=== PATIENT | male | born 1940 | race Caucasian/White ===

== ENCOUNTER 2016-09-10 17:28 | Inpatient (IN) | payer OTHER, MEDICARE ==
[~2016-09-10] VITALS: Ht 170.2 cm; Wt 80.5 kg
[2016-09-10] VITALS (7 sets, daily range): BP systolic 69–145; BP diastolic 52–84; PULSE 65–96; RESP 16–24; TEMP 97.5; O2SAT 92–98
[~2016-09-10 17:28] MED LIST: LORT5TAB PO; LOTR5CAP2 PO; METO25 PO; SALM50I INH; ZAFI1TAB PO
[2016-09-10] MEDS ORDERED: SODIUM CHLOR 0.9% 1000 ML INJ 1,000 ML IV ONE ×5 (17:46→21:00)
[2016-09-10] MEDS ORDERED: SODIUM CHLOR 0.9% 1000 ML INJ 800 ML IV ONE (17:46)
[2016-09-10] MEDS ORDERED: ONDANSETRON HCL 4 MG/2 ML VIAL IV PUSH ONE (18:00)
[2016-09-10 18:16] LABS: AUTOMATED NEUTROPHIL # 18.8 TH/MM3 (1.8-7.7); EOSINOPHIL % 0.1 % (0.0-4.0); HEMATOCRIT 47.6 % (39.0-51.0); LYMPH % 5.6 % (9.0-44.0); LYMPHOCYTE # 1.2 TH/MM3 (1.0-4.8); MEAN CELL VOLUME 81.9 FL (80.0-100.0); MEAN CORPUSCULAR HEMOGLOBIN 28.2 PG (27.0-34.0); MEAN CORPUSCULAR HGB CONC 34.4 % (32.0-36.0); NEUT % 86.3 % (16.0-70.0); PLATELET COUNT 276 TH/MM3 (150-450); RED BLOOD COUNT 5.81 MIL/MM3 (4.50-5.90); RED CELL DISTRIBUTION WIDTH 14.3 % (11.6-17.2); WHITE BLOOD COUNT 21.7 TH/MM3 (4.0-11.0)
--- NOTE | 2016-09-10 18:21 | RADHPO ---
EXAM DATE/TIME: 09/10/2016 17:58 [facility] COMPARISON: No previous studies available for comparison. INDICATIONS : Shortness of breath and weakness. MEDICAL HISTORY : None. SURGICAL HISTORY : None. ENCOUNTER: Initial ACUITY: 4 - 6 days PAIN SCORE: 0/10 LOCATION: Bilateral chest FINDINGS: The lungs are clear without infiltrate, nodule, or mass. There is no appreciable pleural effusion fo r technique. Heart and mediastinum are unremarkable. CONCLUSION: No acute cardiopulmonary disease. Efren Londono MD on September 10, 2016 at 18:18 Board Certified Radiologist. This report was verified electronically.
[2016-09-10 18:24] LABS: CHLORIDE 96 MEQ/L (98-107); POTASSIUM 3.4 MEQ/L (3.5-5.1); SODIUM (NA) 130 MEQ/L (136-145)
[2016-09-10 18:28] LABS: ANION GAP 21 MEQ/L (5-15); BLOOD UREA NITROGEN 82 MG/DL (7-18)
[2016-09-10 18:30] LABS: APTT (PATIENT) 31.6 SEC (24.3-30.1); INTERNATIONAL NORMALIZED RATIO 1.1 RATIO; PROTHROMBIN TIME - PATIENT 11.9 SEC (9.8-11.6)
[2016-09-10 18:31] LABS: ALT (GPT) 50 U/L (12-78); AST (GOT) 63 U/L (15-37); GLOMERULAR FILTRATION RATE 5 ML/MIN (>89)
--- NOTE | 2016-09-10 18:32 | PD ---
HPI Chief Complaint: GI Complaint Time Seen by Provider: 17:41 Travel History International Travel<30 days: No Contact w/Intl Traveler<30days: No Traveled to known affect area: No History of Present Illness HPI 76-year-old male here for evaluation of diarrhea and generalized weakness. The patient has had multiple episodes of loose last watery bowel movements over the last 2 days. He is having some lower abdominal discomfort as well. Bowel movements have been clear and watery and the patient states that he has a bowel movement as soon as he tries to drink something. He has felt nauseous but has not vomited. Denies history of abdominal surgeries. States that occasionally he notices some bright red blood on the toilet paper, but believes that this is from irritation. No rectal pain. No recent travel outside the country. No recent antibiotic use. Chart review shows that the patient had a colonoscopy in 2007 which showed diverticulosis. [facility] Social History Alcohol Use: Yes (rare) Tobacco Use: No (former smoker) Allergies-Medications (Allergen,Severity, Reaction): Coded Allergies: No Known Allergies (Unverified , 09/10/16) Reported Meds & Prescriptions Reported Meds & Active Scripts Active Reported Metoprolol Tartrate 100 Mg Tab 100 Mg PO DAILY Hydrochlorothiazide 25 Mg Tab 25 Mg PO DAILY Hydrocodone-Acetaminophen 5-325 mg Tab 1 Tab PO Q12HR PRN Enalapril (Enalapril Maleate) 20 Mg Tab 20 Mg PO HS Zafirlukast 20 Mg Tab 20 Mg PO BIDAC Amlodipine (Amlodipine Besylate) 10 Mg Tab 10 Mg PO DAILY Review of Systems Except as stated in HPI: all other systems reviewed are Neg Physical Exam Narrative GENERAL: Well-developed, well-nourished, awake, alert, no acute distress. SKIN: Focused skin assessment warm/slightly diaphoretic. HEAD: Atraumatic. Normocephalic. EYES: Pupils equal and round. No scleral icterus. No injection or drainage. ENT: Mucous membranes pink and moist. NECK: Trachea midline. No JVD. No nuchal rigidity. CARDIOVASCULAR: Regular rate and rhythm. RESPIRATORY: No accessory muscle use. Clear to auscultation. Breath sounds equal bilaterally. GASTROINTESTINAL: Abdomen soft, nondistended. Mild diffuse tenderness without peritoneal signs. Normal bowel sounds. MUSCULOSKELETAL: No obvious deformities. No clubbing. No cyanosis. No edema. NEUROLOGICAL: Awake and alert. No obvious cranial nerve deficits. Motor grossly within normal limits. Normal speech. PSYCHIATRIC: Appropriate mood and affect; insight and judgment normal. Data Data Last Documented VS Vital Signs Date Time Temp Pulse Resp B/P Pulse Ox O2 Delivery O2 Flow Rate FiO2 09/10/16 19:38 20 09/10/16 19:38 89 145/56 98 Nasal Cannula 2 09/10/16 17:45 97.5 Orders Complete Blood Count With Diff (09/10/16 17:46) Comprehensive Metabolic Panel (09/10/16 17:46) Prothrombin Time / Inr (Pt) (09/10/16 17:46) Act Partial Throm Time (Ptt) (09/10/16 17:46) Lactic Acid Sepsis Protocol (09/10/16 17:46) Ckmb (Isoenzyme) Profile (09/10/16 17:46) Troponin I (09/10/16 17:46) Urinalysis - C+S If Indicated (09/10/16 17:46) Blood Culture (09/10/16 17:46) Chest, Single Ap (09/10/16 17:46) Blood Glucose (09/10/16 17:46) Ecg Monitoring (09/10/16 17:46) Iv Access Insert/Monitor (09/10/16 17:46) Oximetry (09/10/16 17:46) Oxygen Administration (09/10/16 17:46) Sodium Chlor 0.9% 1000 Ml Inj (Ns 1000 M (09/10/16 17:46) Sodium Chlor 0.9% 1000 Ml Inj (Ns 1000 M (09/10/16 17:46) Ondansetron Inj (Zofran Inj) (09/10/16 18:00) Ct Abd/Pel W/O Iv Contrast (09/10/16 18:34) Sodium Chlor 0.9% 1000 Ml Inj (Ns 1000 M (09/10/16 18:45) Sodium Chlor 0.9% 1000 Ml Inj (Ns 1000 M (09/10/16 18:45) C Diff Toxin Pcr (09/10/16 18:39) Stool Ova And Parasite Screen (09/10/16 18:39) Stool Wbc (Leukocytes) (09/10/16 18:39) CKMB (09/10/16 17:50) CKMB% (09/10/16 17:50) Metronidazole 500 Mg Inj (Flagyl 500 Mg (09/10/16 19:00) Sodium Chlor 0.45%... W/Sodium Bicarbona (09/10/16 19:45) Urinary Catheter Insert/Apply (09/10/16 19:47) Admit Order (Ed Use Only) (09/10/16 20:10) Labs Laboratory Tests Test 09/10/16 09/10/16 09/10/16 17:50 18:00 19:30 White Blood Count 21.7 TH/MM3 Red Blood Count 5.81 MIL/MM3 Hemoglobin 16.4 GM/DL Hematocrit 47.6 % Mean Corpuscular Volume 81.9 FL Mean Corpuscular Hemoglobin 28.2 PG Mean Corpuscular Hemoglobin 34.4 % Concent Red Cell Distribution Width 14.3 % Platelet Count 276 TH/MM3 Mean Platelet Volume 8.7 FL Neutrophils (%) (Auto) 86.3 % Lymphocytes (%) (Auto) 5.6 % Monocytes (%) (Auto) 8.0 % Eosinophils (%) (Auto) 0.1 % Basophils (%) (Auto) 0.0 % Neutrophils # (Auto) 18.8 TH/MM3 Lymphocytes # (Auto) 1.2 TH/MM3 Monocytes # (Auto) 1.7 TH/MM3 Eosinophils # (Auto) 0.0 TH/MM3 Basophils # (Auto) 0.0 TH/MM3 CBC Comment DIFF FINAL Differential Comment Prothrombin Time 11.9 SEC Prothromb Time International 1.1 RATIO Ratio Activated Partial 31.6 SEC Thromboplast Time Sodium Level 130 MEQ/L Potassium Level 3.4 MEQ/L Chloride Level 96 MEQ/L Carbon Dioxide Level 13.0 MEQ/L Anion Gap 21 MEQ/L Blood Urea Nitrogen 82 MG/DL Creatinine 9.80 MG/DL Estimat Glomerular Filtration 5 ML/MIN Rate Random Glucose 124 MG/DL Calcium Level 8.2 MG/DL Total Bilirubin 1.0 MG/DL Aspartate Amino Transf 63 U/L (AST/SGOT) Alanine Aminotransferase 50 U/L (ALT/SGPT) Alkaline Phosphatase 79 U/L Total Creatine Kinase 1132 U/L Creatine Kinase MB 31.0 NG/ML Creatine Kinase MB % 2.8 % Troponin I LESS THAN 0.02 NG/ML Total Protein 7.8 GM/DL Albumin 3.7 GM/DL Lactic Acid Level 2.2 mmol/L Stool C. difficile Toxin (PCR) NEGATIVE Stl C. difficile Toxin PRESUMPTIVE Epiderm 027 NEGATIVE MDM Medical Decision Making Medical Screen Exam Complete: Yes Emergency Medical Condition: Yes Interpretation(s) EKG: Sinus, rate 97, normal axis, normal intervals, T-wave inversions and ST depressions in 1, aVL, V4-V6 Differential Diagnosis Sepsis, dehydration, colitis, diverticulitis, metabolic abnormality Narrative Course Upon arrival to the emergency department the patient is notably hypotensive. One IV line was established by my nurse in the right arm and the patient was immediately given a normal saline IV bolus. Simultaneously I place an ultrasound-guided IV in the patient's left arm and started running another bolus through this IV. Initial vital signs show heart rate 96, blood pressure 69/52, pulse ox 92% on room air, oral temp of 97.5F. CBC shows WBC 21.7, hemoglobin 16.4, hematocrit 47.6, platelets 276, neutrophils 86.3%. CMP shows sodium 130, potassium 3.4, chloride 96, bicarbonate 13, anion gap 21, BUN 82, creatinine 9.8, GFR 50. Total CK is 1132. Troponin is less than 0.02. Lactic acid is 2.2. Chest x-ray: No acute cardio pulmonary disease. CT abdomen pelvis: Fatty liver and colonic diverticula. Patient's blood pressure responded after 2 L of normal saline IV. He was also written for another 2 L of normal saline. Brown catheter placed. Case discussed with on-call flight engineer performance qualified Dr. Armendariz who recommends starting the patient on half-normal saline with 2 amps of sodium bicarbonate at 125 cc per hour after he receives his normal saline boluses. Case discussed with actuary Dr. Ugalde. The patient will be admitted to the ICU here. The patient was made aware of all findings and plan for admission. All questions were answered. Critical Care Narrative Aggregate critical care time was 40 minutes. Time to perform other separately billable procedures was not included in the critical care time. My time did not include minutes spent treating any other patients simultaneously or on activities that did not directly contribute to the patient's treatment. The services I provided to this patient were to treat and/or prevent clinically significant deterioration that could result in: , permanent disability, septic shock, worsening clinical condition, multiorgan failure I provided critical care services requiring my management, as noted below: Chart data review, documentation time, medication orders and management, vital sign assessments/reviewing monitor data, ordering and reviewing lab tests, ordering and interpreting/reviewing x-rays and diagnostic studies, care of the patient and discussion of the patient with the admitting physicians. Procedures Procedure Narrative Ultrasound-guided peripheral IV: Using the linear ultrasound probe, a 20-gauge long IV catheter was placed in the patient's left arm. Site was prepped with ChloraPrep prior to insertion. Tolerated well. No complications. Diagnosis Primary Impression: Sepsis Qualified Code: A41.9 - Sepsis, due to unspecified organism Additional Impressions: Severe dehydration Acute renal insufficiency Abnormal EKG Diarrhea Qualified Code: R19.7 - Diarrhea, unspecified type Admitting Information Admitting Physician Requests: Admit Rj Miguel MD Sep 10, 2016 18:32
[2016-09-10 18:34] LABS: ALKALINE PHOSPHATASE 79 U/L (45-117)
[2016-09-10 18:45] LABS: CREATINE KINASE 1132 U/L (39-308)
[2016-09-10 18:51] LABS: HEMO FLAGS DIFF FINAL
[2016-09-10] MEDS ORDERED: metroNIDAZOLE 500 MG INJ 100 ML IV ONE (19:00)
[2016-09-10] MEDS ORDERED: AMLO10TA2 PO (19:07)
[2016-09-10] MEDS ORDERED: ZAFI1TAB4 PO (19:07)
[2016-09-10] MEDS ORDERED: ENAL20TA PO (19:07)
[2016-09-10] MEDS ORDERED: HYDR-3516 PO (19:07)
[2016-09-10] MEDS ORDERED: HYDR25TA5 PO (19:07)
[2016-09-10] MEDS ORDERED: METO100T PO (19:07)
--- NOTE | 2016-09-10 19:09 | RADHPO ---
EXAM DATE/TIME: 09/10/2016 18:40 [facility] COMPARISON: No previous studies available for comparison. INDICATIONS : Mid abdominal pain. Diarrhea. ORAL CONTRAST: No oral contrast ingested. RADIATION DOSE: 12.65 CTDIvol (mGy) MEDICAL HISTORY : Hypertension. SURGICAL HISTORY : None. ENCOUNTER: Initial ACUITY: 2 days PAIN SCALE: 4/10 LOCATION: Bilateral mid abdomen. TECHNIQUE: Volumetric scanning of the abdomen and pelvis was performed. Using automated exposure control and ad justment of the mA and/or kV according to patient size, radiation dose was kept as low as reasonably achievable to obtain optimal diagnostic quality images. FINDINGS: CT Abdomen: The spleen, pancreas, right kidney, adrenals are unremarkable. There is an approximate 1. 8 cm simple cyst in the left kidney. There is no evidence for any appreciable pathological adenopathy , free fluid, or bowel obstruction. Chronic vascular calcifications are present involving the aorta, iliac arteries without any significant stenosis or aneurysmal dilatations for technique. Neurovascul ar calcifications in both kidneys. There is no evidence for any stones in the kidneys or the course o f the ureters on either side. There is no hydronephrosis. The liver is fatty without focal lesions or technique. There may be a small sliding hiatal hernia. CT pelvis: There is no evidence for mass, abscess formation, or any significant adenopathy within the pelvis. The prostate gland is inhomogeneous and measures 4.7 x 5.3 cm in AP and transverse diameters and nonspecific. There is slight hydrocele within the right scrotal sac. There are scattered diverti culi mainly in the sigmoid colon without definite signs of diverticulitis. CONCLUSION: Fatty liver and colonic diverticuli. Efren Londono MD on September 10, 2016 at 19:03 Board Certified Radiologist. This report was verified electronically.
[2016-09-10] MEDS ORDERED: SODIUM BICARBONATE 8.4% INJ 100 MEQ in SODIUM CHLOR 0.45% 1000 ML INJ 1,000 ML IV SCH (19:45)
[2016-09-10 20:12] LABS: LACTIC ACID GHOST NOT REPORTABLE
[2016-09-10] MEDS ORDERED: CHLORHEXIDINE GLUCONATE 2 % 1 PACK (2 CLOTHS) TOP PRN (20:45)
[2016-09-10] MEDS ORDERED: ZOLPIDEM TARTRATE 5 MG TAB PO PRN (20:45)
[2016-09-10] MEDS ORDERED: ACETAMINOPHEN 325 MG TAB PO PRN (20:45)
[2016-09-10] MEDS ORDERED: SODIUM CHLOR 0.9% 1000 ML INJ 1,000 ML IV SCH (20:45)
[2016-09-10] MEDS ORDERED: SODIUM CHLORIDE 0.9% FLUSH 10 ML FLUSH PRN (20:45)
[2016-09-10] MEDS ORDERED: LORazepam 2 MG/ML VIAL IV PRN (20:45)
[2016-09-10] MEDS ORDERED: MISCELLANEOUS NURSING INFORMATION XX SCH (20:45)
[2016-09-10] MEDS ORDERED: RESP: ALBUTEROL 2.5 MG/IPRATROPIUM 0.5 MG NEB (PRN) INH (20:45)
[2016-09-10 20:52] LABS: BLOOD, URINE LARGE (NEG); GLUCOSE,URINE NEG (NEG); KETONE, URINE NEG (NEG); NITRITE,URINE NEG (NEG)
[2016-09-10] MEDS: SODIUM CHLORIDE 0.9% FLUSH 10 ML FLUSH SCH (21:00)
[2016-09-10 21:02] LABS: SQUAMOUS EPITHELIAL CELL URINE 0-5 /hpf (0-5); URINE COLOR YELLOW (YELLW/STRAW); WBC, URINE 0-2 /hpf (0-5)
[2016-09-10 21:03] LABS: COMMENT (UR) CULT NOT INDICATED; CULTURE IF INDICATED CULT NOT INDICATED
[2016-09-10 22:56] LABS: C. DIFF EPI 027 PRESUMPTIVE NEGATIVE (NEGATIVE); C. DIFF TOXIN PCR NEGATIVE (NEGATIVE)
[2016-09-10] MEDS: cefTRIAXone INJ 1,000 MG in SODIUM CHLORIDE 0.9% INJ 100 ML IV SCH (23:17)
[2016-09-10] MEDS: HEPARIN SODIUM - SQ 10,000 UNITS/ML VIAL SQ SCH (23:18)
[2016-09-10] MEDS: FAMOTIDINE 20 MG/2 ML VIAL IV PUSH SCH (23:18)
[2016-09-11] VITALS (29 sets, daily range): BP systolic 91–153; BP diastolic 52–74; PULSE 96–130; RESP 16–22; TEMP 98.2–98.7; O2SAT 93–99
[2016-09-11] MEDS: CHLORHEXIDINE GLUCONATE 2 % 1 PACK (2 CLOTHS) TOP SCH (04:00)
[2016-09-11] MEDS: metroNIDAZOLE 500 MG INJ 100 ML IV SCH ×3 (04:39→19:52)
[2016-09-11 06:04] LABS: AUTOMATED NEUTROPHIL # 8.1 TH/MM3 (1.8-7.7); BASOPHIL % 0.1 % (0.0-2.0); EOSINOPHIL % 0.2 % (0.0-4.0); HEMATOCRIT 36.8 % (39.0-51.0); LYMPH % 5.9 % (9.0-44.0); LYMPHOCYTE # 0.5 TH/MM3 (1.0-4.8); MEAN CELL VOLUME 81.8 FL (80.0-100.0); MEAN CORPUSCULAR HEMOGLOBIN 27.9 PG (27.0-34.0); NEUT % 85.8 % (16.0-70.0); PLATELET COUNT 153 TH/MM3 (150-450); RED CELL DISTRIBUTION WIDTH 13.9 % (11.6-17.2); WHITE BLOOD COUNT 9.3 TH/MM3 (4.0-11.0)
[2016-09-11 06:09] LABS: HEMO FLAGS DIFF FINAL
[2016-09-11 06:22] LABS: CALCIUM-PROTEIN CORRECTED 7.7 MG/DL (8.5-10.1); MAGNESIUM 1.8 MG/DL (1.5-2.5); POTASSIUM 3.2 MEQ/L (3.5-5.1); TOTAL BILIRUBIN ADULT 0.9 MG/DL (0.2-1.0)
[2016-09-11] MEDS ORDERED: GLUCAGON 1 MG/ML VIAL OTHER PRN (07:00)
[2016-09-11] MEDS ORDERED: DEXTROSE 50% IN WATER 50 ML VIAL(D50) IV PUSH PRN (07:00)
[2016-09-11] MEDS ORDERED: SODIUM CHLOR 0.9% 1000 ML INJ 1,000 ML IV ONE ×2 (07:15→15:15)
[2016-09-11] MEDS ORDERED: POTASSIUM CHLOR 20 MEQ PREMIX 100 ML IV ONE ×2 (08:00→15:30)
[2016-09-11] MEDS: INSULIN NovoLIN REGULAR SUPPLEMENTAL SCALE SQ SCH ×3 (08:00→20:00)
[2016-09-11] MEDS: SODIUM BICARBONATE 8.4% INJ 100 MEQ in SODIUM CHLOR 0.45% 1000 ML INJ 1,000 ML IV SCH ×3 (08:06→22:42)
[2016-09-11] MEDS: HEPARIN SODIUM - SQ 10,000 UNITS/ML VIAL SQ SCH ×2 (08:08→19:53)
[2016-09-11] MEDS: FAMOTIDINE 20 MG/2 ML VIAL IV PUSH SCH ×2 (08:09→19:52)
--- NOTE | 2016-09-11 08:18 | MH ---
cc: KAYLYNN VALIENTE M.D. DATE OF ADMISSION 09/10/2016 DATE OF 1940 HISTORY The patient is a 76-year-old male with a past medical history of hypertension who presented to [facility] ED with a history of diarrhea, generalized weakness and decreased p.o. intake for the last two days. He denies any associated symptoms of emesis, abdominal pain, fever, chills or any constitutional symptoms. In addition, he denies any chest pain, shortness of breath, orthopnea, PND or edema of the lower extremities.. Upon arrival to the ER, he was initially hypotensive with a blood pressure 69/52, however, the patient responded to fluid resuscitation. He was given two liters of crystalloids in the ED and his current blood pressure is 130/62 with a pulse of 102. CT scan of the abdomen and pelvis obtained on arrival which showed fatty liver and colonic diverticuli. In addition, his chest x-ray in the ER showed no acute cardiopulmonary disease. LABORATORY DATA His laboratory data on arrival showed leukocytosis with a WBC of 21.7 which resolved and his current WBC is 9.3. Other significant labs showed acute renal failure with a BUN of 82, creatinine 9.80 and lactic acid of 2.2. His renal function continued to improve with hydration. His BUN is 69 with a creatinine of 5.10 and lactic acid of 1.0 this morning. C. diff PCR is negative. The patient was placed on empiric antibiotics in the form of Flagyl and Rocephin. He appears comfortable on room air oxygen with a saturation of 94%. The patient states that he feels better overall. He denies any recent travel or antibiotics use. PAST MEDICAL HISTORY Significant for hypertension. PAST SURGICAL HISTORY Surgery on his right arm. ALLERGIES NO KNOWN DRUG ALLERGIES. REPORTED MEDICATIONS 1. Metoprolol 2. Hydrochlorothiazide 3. Enalapril 4. Amlodipine SOCIAL HISTORY Nonsmoker, social drinker. FAMILY HISTORY Noncontributory REVIEW OF SYSTEMS As per HPI. The rest of the systems is unremarkable. PHYSICAL EXAM This is a 76-year-old male lying in bed in no acute distress. VITAL SIGNS: Afebrile, temperature 98.2, pulse of 102, blood pressure 130/62, saturation 94% on room air. HEENT: Atraumatic, normocephalic pupil equal and reactive to accommodation, extraocular muscles intact. Conjunctiva pink. Nonicteric sclerae. Oral mucosa within normal. NECK: Supple. No JVD, adenopathy or thyromegaly. Trachea midline. CARDIOVASCULAR: Tachycardiac, normal S1-S2. No murmurs, rubs or gallops noted. PULMONARY: Bilateral equal entry. No crackles or wheezing. ABDOMEN: Soft, obese, nontender, no distension. Positive bowel sounds. EXTREMITIES: No cyanosis or edema. NEUROLOGIC: No focal sensory deficit. Awake and alert. LABORATORY DATA From this morning sodium 142, potassium 3.2, chloride 113, CO2 14, BUN 69, creatinine 5.10, glucose 82, lactic acid one, corrected calcium 7.7, AST 41, ALT 37, total bilirubin 0.9, ammonia level 10, troponin less than 0.02 x2 sets. WBC 9.3, hemoglobin 12.5, hematocrit 36, platelet count 153, INR 1.1, PT 11.9, PTT 31.6. Urinalysis showed negative leukocyte esterase, negative nitrite, 0-2 WBCs, C. diff toxin PCR negative. RADIOGRAPHY STUDIES Chest x-ray showed no acute cardiopulmonary disease. CT abdomen, pelvis showed fatty liver and colonic diverticulitis. IMPRESSION 1. Hypotension resolved 2. Severe dehydration 3. Diarrhea 4. Leukocytosis resolved 5. Lactic acidemia resolved 6. Acute renal failure likely a prerenal picture improving 7. History of hypertension. RECOMMENDATIONS 1. The patient is awake, alert, avoid any sedatives. 2. Oxygen p.r.n. to maintain sats above 92% and bronchodilators on a p.r.n. basis. 3. Monitor heart rate and blood pressure and maintain MAP greater than 65 mmHg. 4. His troponin I negative at times is less than 0.02 x2 sets and lactic acid resolved. 5. Continue with IV hydration. 6. Monitor renal function I's and O's and avoid nephrotoxins. 7. He was given two liters of crystalloids in the ED. We will place on half NS plus 2 ampules of sodium bicarb at 125 mL/hr and will consult nephrology service. 8. Dr. Armendariz was contacted by ED on arrival. His CT abdomen and pelvis showed fatty liver and colonic diverticula. No evidence of any hydronephrosis. A 1.8 cm simple cyst noted in the left kidney. 9. Continue empiric antibiotics in the form of Rocephin and Flagyl and monitor for signs of infections which include fever and WBC. Follow up on blood cultures and stool culture. In addition, his C. Diff PCR is negative. 10. The patient is on a p.o. diet and Pepcid 10 mg a [id number] for GI prophylaxis. 11. Place on sliding scale insulin with Accu-Chek q6-hour if needed for glycemic control. 12. Monitor CBC 13. GI prophylaxis with Pepcid and DVT prophylaxis with SCDs and heparin subcu. 1800 Addendum: Patient's renal function improving with hydration. Will sign off and transfer care to [facility]. MD FARHAD Ba/ABDULAZIZ /6:55 AM /7:48 AM RAJENDRA
[2016-09-11] MEDS: SODIUM CHLORIDE 0.9% FLUSH 10 ML FLUSH SCH ×2 (08:21→21:57)
[2016-09-11] MEDS ORDERED: CALCIUM GLUCONATE INJ 1 GM in SODIUM CHLORIDE 0.9% INJ 100 ML IV ONE (09:00)
[2016-09-11 12:13] LABS: MRSA PCR NEGATIVE (NEGATIVE); STAPH AUREUS PCR NEGATIVE (NEGATIVE)
[2016-09-11 13:00] LABS: POTASSIUM 3.3 MEQ/L (3.5-5.1)
[2016-09-11 13:17] LABS: BICARBONATE 15.2 MEQ/L (21.0-32.0)
[2016-09-11 13:28] LABS: CALCIUM-PROTEIN CORRECTED 8.3 MG/DL (8.5-10.1)
--- NOTE | 2016-09-11 18:36 | MB ---
cc: TESSA SHERIDAN MD DATE OF CONSULTATION 09/11/16 REASON FOR CONSULTATION Elevated BUN and creatinine for evaluation. HISTORY OF PRESENT ILLNESS This is a 76-year-old male with past medical history of hypertension only presented to the emergency department yesterday evening because of severe diarrhea and generalized weakness lasting for the last 2-3 days. I was called to see the patient because of a very high BUN and creatinine. His BUN on presentation was 82 and the creatinine was 9.8. His potassium was low 3.4 but the bicarb was 13. The patient was complaining of diarrhea for the last [id number] days and he has no abdominal pain. There was no vomiting. The bowel movement was three to four per day and, when he came in here, he was found to be hypotensive. His blood pressure was 69/52. After fluid resuscitation, the blood pressure improved and he started passing more urine. His BUN and creatinine are also coming down. The patient denies any previous known history of renal disease. We do not have any baseline creatinine for him. PAST MEDICAL HISTORY Hypertension. PAST SURGICAL HISTORY Right arm surgery. REVIEW OF SYSTEMS There is no history of fever. No sore throat. He has generalized weakness, feeling tired. There is no shortness of breath. No chest pain or palpitations. He denies any abdominal pain. There is no history of vomiting. He has loose bowel motion going on for the last 2-3 days before coming to the hospital. He was feeling weak and tired. SOCIAL HISTORY . There is no history of smoking or alcoholism FAMILY HISTORY Noncontributory. ALLERGIES NO KNOWN DRUG ALLERGIES. MEDICATIONS Current at home 1. Metoprolol. 2. Hydrochlorothiazide. 3. Enalapril. 4. Amlodipine. Here he is getting 1. IV fluid with Sodium bicarbonate 2. Potassium chloride 3. Calcium gluconate. 4. Famotidine 10 mg q. 12-hour. 5. Heparin subcu 5000 units q 12 hr. 6. Ceftriaxone 1 gram q 24 hours. 7. Metronidazole 500 mg q.8 h 8. Ativan 9. Ambien as needed PHYSICAL EXAMINATION GENERAL: Patient is awake, alert. He is not in acute distress. VITAL SIGNS: Blood pressure is 121/55, temperature is 98.7, oxygen saturation 97-98%. HEENT: Pupils equally reacting to light. Nonicteric sclerae, conjunctivae normal. NECK: Supple. JVD is not elevated. LUNGS: The patient has bilateral good air entry with occasional wheezing. HEART: S1, S2 regular rhythm. ABDOMEN: Distended, soft, lax. There is no tenderness. Bowel sounds positive. EXTREMITIES: She has no pedal edema. LABORATORY DATA WBC count 9.3, hemoglobin 12.5, platelet count 153, neutrophils 85.8%. Sodium 130. Potassium 3.4, chloride 96, bicarb 13, BUN 82, creatinine 9.8. This was on presentation. The latest BMP showing the sodium is 144. Potassium 3.3, chloride 116, bicarb 15.2, BUN 56, creatinine 3.3, calcium corrected is 8.3. Troponin I is less than 0.02, total protein is 5.3. Albumin of 2.6. Lactic acid was 1.0. It was 2.2 on presentation. AST is 41, ALT 37, alkaline phosphatase 58, total creatinine kinase was 1132, INR is 1.1. Urinalysis showing protein of 100. C difficile toxin was negative. Stool cultures and blood cultures are showing no growth so far. IMAGING STUDIES The patient has abdomen and pelvis CT scan done without IV contrast and it shows that he has fatty liver and colonic diverticula, a 1.8 cm simple cyst in the left kidney, no evidence of adenopathy. No hydronephrosis. Right kidney was reported as unremarkable. Chest x-ray Was done which shows that he has no acute cardiopulmonary disease. ASSESSMENT/PLAN 1. Acute kidney injury 2. Hypokalemia. 3. Metabolic acidosis 4. Elevated CPK 5. Severe diarrhea. 6. Hypotension and dehydration. 7. History of hypertension The patient has low blood pressure and very high BUN and creatinine. Most likely the acute kidney injury is related to either dehydration or possibility of ATN. Underlying chronic kidney disease cannot be ruled out completely. He has simple cyst in the left kidney, otherwise, there is no hydronephrosis. He has mild proteinuria. Since he has history of hypertension, there is a possibility of some hypertensive renal disease. At present, I agree with continuing the IV fluid. The bicarb is still not normalized. The CPK level was high. This could be contributing also by causing some form of rhabdo. At present, avoid any nephrotoxins and continue the hydration and antibiotic and follow the urine output and BUN, creatinine. Replace the potassium as needed. Thank you for the consultation. MD CHANDRA Tubbs/ /4:38 PM /6:18 PM
--- NOTE | 2016-09-11 19:36 | EKG ---
Date Performed: 09/11/2016 Time Performed: 12:38:34 PTAGE: 76 years EKG: Atrial fibrillation with rapid ventricular response. Extensive ST-T changes may be due to m yocardial ischemia Compared to prior tracing no significant change Abnormal ECG PREVIOUS TRACING : 09/11/2016 01.58 DOCTOR: Justin Tabares Interpretating Date/Time 09/11/2016 19:33:37
--- NOTE | 2016-09-11 19:55 | EKG ---
Date Performed: 09/11/2016 Time Performed: 01:58:52 PTAGE: 76 years EKG: Atrial fibrillation with rapid ventricular response. Extensive ST-T changes may be due to m yocardial ischemia Compared to previous tracing, ST-T abnormalities are new Abnormal ECG PREVIOUS TRACING : 09/10/2016 17.38 DOCTOR: Justin Tabares Interpretating Date/Time 09/11/2016 19:54:21
--- NOTE | 2016-09-11 19:56 | EKG ---
Date Performed: 09/10/2016 Time Performed: 17:38:14 PTAGE: 76 years EKG: Sinus rhythm with PAC(s) Extensive ST-T changes may be due to myocardial ischemia Compared to prior tracing no si gnificant change Abnormal ECG PREVIOUS TRACING : 03/23/2008 08.03 DOCTOR: Justin Tabares Interpretating Date/Time 09/11/2016 19:54:35
[2016-09-11] MEDS: cefTRIAXone INJ 1,000 MG in SODIUM CHLORIDE 0.9% INJ 100 ML IV SCH (21:54)
[2016-09-11] MEDS: MORPHINE SULFATE 4 MG/ML INJ IV PRN (21:55)
[2016-09-12] VITALS (24 sets, daily range): BP systolic 117–166; BP diastolic 58–87; PULSE 88–133; RESP 10–28; TEMP 98.1–98.6; O2SAT 92–97
[2016-09-12] MEDS: POTASSIUM CHLORIDE 20 MEQ CONTROLLED RELEASE TAB PO SCH ×3 (00:47→08:58)
[2016-09-12] MEDS: INSULIN NovoLIN REGULAR SUPPLEMENTAL SCALE SQ SCH ×2 (02:00→08:00)
[2016-09-12] MEDS: CHLORHEXIDINE GLUCONATE 2 % 1 PACK (2 CLOTHS) TOP SCH ×2 (04:00→23:00)
[2016-09-12] MEDS: metroNIDAZOLE 500 MG INJ 100 ML IV SCH ×3 (04:23→19:43)
[2016-09-12] MEDS: FAMOTIDINE 20 MG/2 ML VIAL IV PUSH SCH ×2 (08:58→21:18)
[2016-09-12] MEDS: SODIUM BICARBONATE 8.4% INJ 100 MEQ in SODIUM CHLOR 0.45% 1000 ML INJ 1,000 ML IV SCH (08:58)
[2016-09-12] MEDS: METOPROLOL TARTRATE 25 MG TAB PO SCH ×2 (08:58→21:18)
[2016-09-12] MEDS: HEPARIN SODIUM - SQ 10,000 UNITS/ML VIAL SQ SCH (08:58)
[2016-09-12] MEDS: SODIUM CHLORIDE 0.9% FLUSH 10 ML FLUSH SCH ×2 (08:59→20:00)
--- NOTE | 2016-09-12 10:00 | MB ---
cc: JUSTIN MCNEIL DO DATE OF CONSULTATION: 09/12/2016 REASON FOR CONSULTATION Atrial fibrillation with rapid ventricular response. HISTORY OF PRESENT ILLNESS Alfa Law is a pleasant 76-year-old male with a past medical history of hypertension who presented to [facility] due to extensive diarrhea and generalized weakness. He states that he has been having diarrhea and generalized weakness for [id number] days. Denies abdominal pain, nausea or vomiting. He was having bowel movements [id number] times per day. On arrival to the emergency room, he was found to have a blood pressure of 70/50 which improved after fluid resuscitation. He was also noted to be in atrial fibrillation with rapid ventricular response. He has not received any medications to decrease his heart rate. In seeing him this morning his heart rate is still mildly elevated in the 100-110 range. PAST MEDICAL HISTORY Hypertension. PAST SURGICAL HISTORY Right arm surgery. ALLERGIES NO KNOWN DRUG ALLERGIES. MEDICATIONS 1. Enalapril 20 mg every night. 2. Metoprolol tartrate 100 mg daily. 3. Norvasc 10 mg daily. 4. Zafirlukast 20 mg b.i.d. 5. Hydrocodone/acetaminophen 5/325 one tablet every 12 hours as needed. 6. Hydrochlorothiazide 25 mg daily. SOCIAL HISTORY The patient lives part of the year in [place] and part of the year in [place] with his granddaughter. He is . Denies a history of tobacco or alcohol abuse. FAMILY HISTORY Denies premature coronary artery disease or sudden cardiac within the family. REVIEW OF SYSTEMS Fourteen systems were reviewed including osteopathic, pertinent positives and negatives above otherwise negative. PHYSICAL EXAMINATION VITAL SIGNS: Temperature 98.3, heart rate 116, blood pressure 145/65, respirations 18, pulse ox 94% on room air. GENERAL: In general the patient appears well, in no acute distress. Alert, awake and oriented x3. HEENT: Extraocular muscles intact. Mucous membranes moist. NECK: Neck is supple. No JVD at 45 degrees. No carotid bruits heard bilaterally. Carotid upstroke is brisk in nature. HEART: Heart is irregularly irregular. Positive first and second heart sounds with no noted murmurs, gallops or rubs. PMI is nondisplaced. LUNGS: Lungs are clear to auscultation bilaterally. No wheezes, rales or rhonchi. ABDOMEN: Abdomen is soft, nontender, nondistended. No organomegaly noted. EXTREMITIES: Show no clubbing, cyanosis or edema. Femoral and distal pulses intact bilaterally. NEUROLOGIC: No focal deficits. SKIN: Warm, dry and intact. OSTEOPATHIC: Osteopathically no kyphoscoliosis, lordosis or paraspinal tender points. LABORATORY WORK White blood cells 9.3, hemoglobin 12.5, hematocrit 36.8, platelets 153. Potassium 3.0, BUN 56, creatinine 9.8 decreasing to 3.3, troponin negative x3. Electrocardiogram (September 11, 2016 at 1917): Atrial fibrillation with rapid ventricular response, possible LVH with secondary ST-T wave changes versus possible ischemia. IMPRESSIONS 1. Severe hypotension on arrival secondary to dehydration which resolved after fluid resuscitation. 2. Severe dehydration due to diarrhea. 3. Diarrhea of unknown cause. 4. Atrial fibrillation with rapid ventricular response which is new in onset. 5. Lactic acidemia. 6. Acute renal failure. 7. Hypokalemia most likely due to diarrhea. 8. History of hypertension. RECOMMENDATIONS 1. Mr. Law appears to have had extensive diarrhea leading to hypotension and generalized weakness as well as hypokalemia. He has since been fluid resuscitated and hemodynamically stable. 2. As far as his atrial fibrillation, his heart rate is still somewhat elevated. I will plan on starting him back on some of his metoprolol tartrate most likely 25 mg b.i.d. which can be titrated up as necessary. 3. We will check a 2D echo to look at his overall left ventricular function, cardiac structure and possible vulvopathies. 4. I discussed with him about anticoagulation for his atrial fibrillation. He is a CHADS-VASc 2 of 2 on the borderline of 3 (age, hypertension). Because of this, we will plan on placing him on Eliquis 5 mg b.i.d. 5. I did speak to him about his bleeding risk and he states that he has been taking excessive amounts of ibuprofen due to his elbow and neck pain. We discussed that he needs to cut down on the amount of ibuprofen he uses specifically in regards to his hypertension and current kidney function which he is agreeable to. 6. He does have some ST-T wave changes on his EKG which may be due to LVH versus ischemia. He will need a further ischemic evaluation with stress testing whether inpatient or outpatient. Further recommendations will be made based on the hospital course. Thank you for allowing me to see Alfa Law. If there are any questions, please do not hesitate to call. Justin Mcneil DO VGP/BJF /7:55 AM /9:26 AM
[2016-09-12 10:19] LABS: AUTOMATED NEUTROPHIL # 4.3 TH/MM3 (1.8-7.7); BASOPHIL % 0.4 % (0.0-2.0); EOSINOPHIL % 0.7 % (0.0-4.0); HEMATOCRIT 34.9 % (39.0-51.0); LYMPH % 12.6 % (9.0-44.0); LYMPHOCYTE # 0.7 TH/MM3 (1.0-4.8); MEAN CELL VOLUME 82.6 FL (80.0-100.0); MEAN CORPUSCULAR HEMOGLOBIN 27.3 PG (27.0-34.0); MONO % 8.2 % (0.0-8.0); NEUT % 78.1 % (16.0-70.0); PLATELET COUNT 142 TH/MM3 (150-450); RED BLOOD COUNT 4.22 MIL/MM3 (4.50-5.90); RED CELL DISTRIBUTION WIDTH 13.3 % (11.6-17.2); WHITE BLOOD COUNT 5.4 TH/MM3 (4.0-11.0)
[2016-09-12 10:28] LABS: CHLORIDE 113 MEQ/L (98-107); POTASSIUM 3.3 MEQ/L (3.5-5.1); SODIUM (NA) 146 MEQ/L (136-145)
[2016-09-12 10:32] LABS: ANION GAP 10 MEQ/L (5-15); BICARBONATE 23.4 MEQ/L (21.0-32.0)
[2016-09-12 10:34] LABS: HEMO FLAGS DIFF FINAL
--- NOTE | 2016-09-12 11:30 | HHI.PR ---
Subjective Remarks Follow-up for diarrhea and severe JOSE MARIA. Patient was transferred to hospitalist service from critical care. Patient states he feels "110% better". Still has diarrhea. He denies any chest pain, shortness of breath, nausea, or vomiting. Objective Vitals Vital Signs Date Time Temp Pulse Resp B/P Pulse Ox O2 Delivery O2 Flow Rate FiO2 09/12/16 11:00 106 19 117/62 92 09/12/16 10:00 104 16 138/70 92 09/12/16 10:00 104 09/12/16 09:00 118 22 161/73 95 09/12/16 08:00 111 09/12/16 08:00 92 Room Air 09/12/16 08:00 98.6 122 28 126/69 94 09/12/16 07:00 112 17 119/64 95 09/12/16 06:00 116 18 145/65 95 09/12/16 05:00 118 17 153/63 95 09/12/16 04:00 98.3 114 17 150/75 97 09/12/16 03:00 114 17 129/59 97 09/12/16 02:00 120 25 122/66 95 09/12/16 01:00 108 18 140/58 94 09/12/16 00:00 98.5 120 23 129/77 94 09/11/16 23:00 114 19 153/63 94 09/11/16 22:00 09/11/16 22:00 118 21 140/65 93 09/11/16 21:00 112 20 138/74 95 09/11/16 20:50 94 21 09/11/16 20:00 98.4 116 21 115/60 94 09/11/16 20:00 130 09/11/16 19:00 110 18 143/52 95 09/11/16 18:00 110 09/11/16 16:00 108 09/11/16 15:00 98.7 118 18 121/55 98 09/11/16 14:00 113 09/11/16 12:00 113 I/O 09/11/16 09/11/16 09/11/16 09/12/16 09/12/16 09/12/16 07:00 15:00 23:00 07:00 15:00 23:00 Intake Total 4770 ml 2000 ml 3188 ml 1189 ml Output Total 2400 ml 2200 ml 1200 ml 1100 ml Balance 2370 ml -200 ml 1988 ml 89 ml Intake Oral 300 ml 300 ml IV Total 4770 ml 2000 ml 2888 ml 889 ml Output Urine Total 2400 ml 2200 ml 1200 ml 1100 ml Result Diagram: 09/12/16 1011 09/12/16 1011 Imaging Last Impressions Abdomen/Pelvis CT 09/10/16 1834 Signed Impressions: Service Date/Time: August 18:40 - CONCLUSION: Fatty liver and colonic diverticuli. Efren Londono MD Chest X-Ray 09/10/16 1746 Signed Impressions: Service Date/Time: August 17:58 - CONCLUSION: No acute cardiopulmonary disease. Efren Londono MD Objective Remarks GENERAL: Well-nourished, well-developed patient in no apparent distress. SKIN: Warm and dry. HEAD: Atraumatic. Normocephalic. CARDIOVASCULAR: Heart rate 133, irregularly irregular. RESPIRATORY: No accessory muscle use. Clear to auscultation. Breath sounds equal bilaterally. GASTROINTESTINAL: Normoactive bowel sounds. Abdomen soft, non-tender, nondistended. MUSCULOSKELETAL: No lower extremity edema bilaterally. NEUROLOGICAL: Awake and alert. Motor grossly within normal limits. Normal speech. PSYCHIATRIC: Appropriate mood and affect; insight and judgment normal. Urinary Catheter: Yes Assessment to: Continue Brown insert reason: Measure Accurate Output Date of Insertion: Sep 10, 2016 Vascular Central Line Catheter: No A/P Problem List: (1) Severe sepsis ICD Code: A41.9 Status: Acute (2) Diarrhea ICD Code: R19.7 Status: Acute (3) Acute renal insufficiency ICD Code: N28.9 Status: Acute (4) Rhabdomyolysis ICD Code: M62.82 Status: Acute (5) Electrolyte abnormality ICD Code: E87.8 Status: Acute (6) Atrial fibrillation with RVR ICD Code: I48.91 Status: Acute Assessment and Plan 76-year-old male with: Severe sepsis: Improved. Initial WBC count 21.7-->5.0. Respiratory rate greater than 20. Heart rate greater than 90 but patient also in A. fib. Lactic acid 2.2. Source of infection suspected gastroenteritis. Hypotensive with BP of 69/52 on presentation. -Blood cultures 2 no growth to date -Continue IVF -Continue antibiotics as below -Telemetry, vitals Diarrhea: The patient likely has a gastroenteritis. Could be bacterial as patient had neutrophil count of 86.3% initially. -Continue Flagyl and ceftriaxone -Continue IV hydration -Monitor stool output -Final stool studies pending. Few WBCs. Acute renal failure: Improved. Severe. BUN/creatinine 82/9.8 on arrival. Ratio indicates intrarenal although patient very likely dehydrated as well. -Nephrology consultation appreciated. States JOSE MARIA due to dehydration or possibly ATN. Per neph, there is possibly of some hypertensive renal disease as well. Collateral Clerk documents the patient has been taking excessive amounts of ibuprofen for pain as well which could have contributed to renal failure. -Continue IV fluids -Monitor BMP -Avoid nephrotoxins Rhabdomyolysis: CK elevated at 1132, could be due to infection or electrolyte abnormalities. -Continue IV hydration -Repeat am CPK Electrolyte abnormalities: Including hypokalemia which persists. Patient initially hyponatremic and hypochloremic but now mildly hypernatremic and hyperchloremic. -Discontinue sodium bicarbonate fluids as bicarb is wnl. Switch to 1/2 NS + 20 mEq KCl at 100 mL/hr IV. -20 mEq po KCl ordered. Monitor K+ and replete as needed. Mg normal. A.Fib RVR: EKG with A.Fib RVR. HR still elevated this morning. -Cardiology consultation appreciated. Spoke with Dr. Vogel today. He will restart patient's metoprolol at lower dose 25 mg by mouth twice a day. Echo ordered. He states patient may need an outpatient stress test due to T-wave inversions on EKG. He will start the patient on Eliquis. Advises checking hemoglobin this afternoon which is stable from this morning. -Telemetry HTN: Continue metoprolol as indicated. Other BP meds currently on hold. Cardiology following. Asthma: Nurse later informed me that patient has wheezing. -Continue home Zafirlukast and Advair. -Start albuterol 1.25 mg q6h as needed for wheezing/SOB. RN advised to monitor HR. GI prophylaxis: Pepcid DVT prevention: SCDs, on heparin currently but patient to start Eliquis tonight ; d/c heparin. Written by Janet Barba PA-C acting as scribe for Dr. Williamson on 09/12/16 at 0800. This note was transcribed by [email or web address] BUTT I, Dr. Carl Williamson personally performed the history, physical exam, and medical decision making; and confirmed the accuracy of the information in the transcribed note. Authenticated by Dr. Carl Williamson on 09/13/16 at 07:19. Problem Qualifiers (1) Diarrhea: Qualified Code: R19.7 - Diarrhea, unspecified type Janet Barba Sep 12, 2016 11:30 Carl Williamson MD Sep 13, 2016 07:19
[2016-09-12] MEDS: ZAFIRLUKAST 20 MG TAB PO SCH ×2 (11:45→16:52)
[2016-09-12 12:00] LABS: ALKALINE PHOSPHATASE 56 U/L (45-117); ALT (GPT) 37 U/L (12-78); AST (GOT) 43 U/L (15-37); BLOOD UREA NITROGEN 31 MG/DL (7-18); GLOMERULAR FILTRATION RATE 54 ML/MIN (>89); TOTAL BILIRUBIN ADULT 0.8 MG/DL (0.2-1.0)
[2016-09-12] MEDS ORDERED: RESP: ALBUTEROL 1.25 MG/3 ML NEB (PRN) NEB (13:00)
--- NOTE | 2016-09-12 13:39 | EKG ---
Date Performed: 09/11/2016 Time Performed: 19:17:04 PTAGE: 76 years EKG: Atrial fibrillation with rapid ventricular response. Possible left ventricular hypertrophy Extensive ST-T changes are probably due to ventricular hypertrophy Abnormal ECG Compared to prior tra cing no significant change PREVIOUS TRACING : 09/11/2016 12.38 DOCTOR: Filipe Le Interpretating Date/Time 09/12/2016 13:35:56
[2016-09-12] MEDS ORDERED: POTASSIUM CHLORIDE 20 MEQ CONTROLLED RELEASE TAB PO ONE (14:00)
[2016-09-12 14:03] LABS: HEMATOCRIT 34.7 % (39.0-51.0); MEAN CELL VOLUME 82.9 FL (80.0-100.0); MEAN CORPUSCULAR HEMOGLOBIN 27.3 PG (27.0-34.0); MEAN CORPUSCULAR HGB CONC 32.9 % (32.0-36.0); PLATELET COUNT 139 TH/MM3 (150-450); RED BLOOD COUNT 4.19 MIL/MM3 (4.50-5.90); RED CELL DISTRIBUTION WIDTH 13.5 % (11.6-17.2); REVIEW FLAG FINAL
[2016-09-12] MEDS: 1/2 NS + KCL 20 MEQ INJ 1,000 ML IV SCH ×2 (14:45→23:45)
--- NOTE | 2016-09-12 15:21 | HHI.NPPN ---
Subjective Renal Failure: Acute History of Present Illness 76-year-old male with past medical history of hypertension only presented to the emergency department yesterday evening because of severe diarrhea and generalized weakness lasting for the last 2-3 days. I was called to see the patient because of a very high BUN and creatinine. His BUN on presentation was 82 and the creatinine was 9.8. Additional Remarks Patient is alert, feeling better, no SOB, no vomiting. Review of Systems General Constitutional: Fatigue Gastrointestinal Gastrointestinal: Diarrhea Objective Data Data 09/11/16 09/12/16 19:00 07:00 Intake Total 2000 ml 4377 ml Output Total 2200 ml 2300 ml Balance -200 ml 2077 ml Intake Oral 600 ml IV Total 2000 ml 3777 ml Output Urine Total 2200 ml 2300 ml Vital Signs Date Time Temp Pulse Resp B/P Pulse Ox O2 Delivery O2 Flow Rate FiO2 09/12/16 11:00 106 19 117/62 92 09/12/16 10:00 104 16 138/70 92 09/12/16 10:00 104 09/12/16 09:00 118 22 161/73 95 09/12/16 08:00 111 09/12/16 08:00 92 Room Air 09/12/16 08:00 98.6 122 28 126/69 94 09/12/16 07:00 112 17 119/64 95 09/12/16 06:00 116 18 145/65 95 09/12/16 05:00 118 17 153/63 95 09/12/16 04:00 98.3 114 17 150/75 97 09/12/16 03:00 114 17 129/59 97 09/12/16 02:00 120 25 122/66 95 09/12/16 01:00 108 18 140/58 94 09/12/16 00:00 98.5 120 23 129/77 94 09/11/16 23:00 114 19 153/63 94 09/11/16 22:00 09/11/16 22:00 118 21 140/65 93 09/11/16 21:00 112 20 138/74 95 09/11/16 20:50 94 21 09/11/16 20:00 98.4 116 21 115/60 94 09/11/16 20:00 130 09/11/16 19:00 110 18 143/52 95 09/11/16 18:00 110 09/11/16 16:00 108 -: 09/12/16 1345 09/12/16 1011 Physical Exam General Appearance: No Acute Distress, Comfortable Eyes Eye Exam: Pupils Equal Pulmonary Resp Exam: Clear Bilaterally, Breath Sounds Equal, No Distress, Decreased Bases Cardiology CV Exam: Regular, Normal Sinus Rhythm Gastrointestinal/Abdomen GI Exam: Soft, Non-Tender, Bowel Sounds Present Extremeties Extremities Exam: Trace Edema Neurologic Neuro Exam: Alert, Awake, Oriented Psychiatric Psych Exam: Appropriate Responses Assessment/Plan Assessment Summary: JOSE MARIA/Acute Renal Failure Electrolyte Assessment: Hypokalemia, Metabolic Acidosis Problem List: (1) Severe dehydration (2) Diarrhea (3) Electrolyte abnormality (4) Atrial fibrillation with RVR (5) Rhabdomyolysis (6) Acute renal insufficiency Plan Patient has significant improvement in the BUN and Creatinine. Acidosis is also better. Urine out put is good. BP is stable. IVF now on with Kcl. Avoid Nephrotoxins. Most likely has JOSE MARIA due to dehydration. Problem Qualifiers (1) Diarrhea: Qualified Code: R19.7 - Diarrhea, unspecified type Sara Armendariz MD Sep 12, 2016 15:21
--- NOTE | 2016-09-12 15:59 | EC ---
Study Study Date:09/12/2016 STUDY CONCLUSIONS SUMMARY - Left ventricle: The cavity size was normal. Wall thickness was normal. Systolic function was normal. The estimated ejection fraction was in the range of 55% to 60%. Wall motion was normal; there were no regional wall motion abnormalities. - Mitral valve: Mildly thickened annulus. Structurally normal valve. - Left atrium: The atrium was mildly dilated. If LV function is below 40, please consider prescribing an ACEI or ARB or document rationale for non-use. PROCEDURE DATA STUDY STATUS: Elective. Procedure: Transthoracic echocardiography. Image quality was good. Scanning was performed from the parasternal, apical, and subcostal acoustic windows. Study completion: The patient tolerated the procedure well. Transthoracic echocardiography. M-mode, complete 2D, complete spectral Doppler, and color Doppler. Patient status: Inpatient. CARDIAC ANATOMY LEFT VENTRICLE: The cavity size was normal. Wall thickness was normal. Systolic function was normal. The estimated ejection fraction was in the range of 55% to 60%. Wall motion was normal; there were no regional wall motion abnormalities. AORTIC VALVE: Trileaflet; normal thickness leaflets. Doppler: Transvalvular velocity was within the normal range. There was no stenosis. No regurgitation. AORTA: Aortic root: The aortic root was normal in size. MITRAL VALVE: Mildly thickened annulus. Structurally normal valve. Doppler: Transvalvular velocity was within the normal range. There was no evidence for stenosis. Trace to mild regurgitation. Peak gradient: 3mm Hg (D). LEFT ATRIUM: The atrium was mildly dilated. RIGHT VENTRICLE: The cavity size was normal. Wall thickness was normal. PULMONIC VALVE: Doppler: Transvalvular velocity was within the normal range. There was no evidence for stenosis. No regurgitation. TRICUSPID VALVE: Structurally normal valve. Doppler: Transvalvular velocity was within the normal range. No regurgitation. PULMONARY ARTERY: The main pulmonary artery was normal-sized. Systolic pressure was within the normal range. RIGHT ATRIUM: The atrium was normal in size. PERICARDIUM: There was no pericardial effusion. SYSTEMIC VEINS: Inferior vena cava: The vessel was normal in size. BASIC MEASUREMENTS ADULT Normal Left ventricle LV internal dimension, ED, chordal level, *38 mm 43-52 PLAX LV internal dimension, ES, chordal level, 31.4 mm 23-38 PLAX Fractional shortening, chordal level, PLAX *17 % >29 LV posterior wall thickness, ED 6.76 mm IVS/LVPW ratio, ED *1.73 <1.3 Ventricular septum Septal thickness, ED 11.7 mm Aortic valve Leaflet separation 18 mm 15-26 Left atrium Anterior-posterior dimension 32 mm Right ventricle RV internal dimension, ED, PLAX 20.7 mm 19-38 BASIC MEASUREMENTS ADULT Normal Aortic valve Leaflet separation 18 mm 15-26 Aorta Root diameter, ED 29 mm 20-37 DOPPLER MEASUREMENTS ADULT Normal Mitral valve Peak E-wave velocity 84.9 cm/s Peak A-wave velocity 29.1 cm/s Peak gradient, D 3 mm Hg Peak E/A ratio 2.9 Tricuspid valve Regurgitant peak velocity 278 cm/s Peak RV-RA gradient, S 31 mm Hg Maximal regurgitant velocity 278 cm/s LEGEND: Mean values are shown as u=mean value. Asterisk (*) tineo values outside specified normal range. Prepared and signed by Justin Tabares [id number]
[2016-09-12] MEDS ORDERED: ADVA100A INH (16:35)
[2016-09-12] MEDS: MORPHINE SULFATE 4 MG/ML INJ IV PRN (19:59)
[2016-09-12] MEDS: BUDESONIDE-FORMOTEROL 80/4.5 MCG INHALER INH SCH (21:17)
[2016-09-12] MEDS: APIXABAN 5 MG TABLET PO SCH (21:32)
[2016-09-12] MEDS: cefTRIAXone INJ 1,000 MG in SODIUM CHLORIDE 0.9% INJ 100 ML IV SCH (21:33)
[2016-09-13] VITALS (18 sets, daily range): BP systolic 140–174; BP diastolic 62–86; PULSE 82–92; RESP 16–22; TEMP 97–98.7; O2SAT 94–97
[2016-09-13] MEDS: 1/2 NS + KCL 20 MEQ INJ 1,000 ML IV SCH ×3 (01:49→21:07)
[2016-09-13] MEDS: metroNIDAZOLE 500 MG INJ 100 ML IV SCH ×3 (03:38→21:06)
[2016-09-13] MEDS: MORPHINE SULFATE 4 MG/ML INJ IV PRN ×3 (03:39→22:29)
[2016-09-13] MEDS: ZAFIRLUKAST 20 MG TAB PO SCH ×2 (06:07→16:52)
[2016-09-13 06:45] LABS: POTASSIUM 3.9 MEQ/L (3.5-5.1)
[2016-09-13 06:49] LABS: BICARBONATE 24.8 MEQ/L (21.0-32.0)
[2016-09-13] MEDS: FAMOTIDINE 20 MG/2 ML VIAL IV PUSH SCH ×2 (09:20→21:05)
[2016-09-13] MEDS: SODIUM CHLORIDE 0.9% FLUSH 10 ML FLUSH SCH ×2 (09:21→21:08)
[2016-09-13] MEDS: APIXABAN 5 MG TABLET PO SCH ×2 (09:21→21:06)
[2016-09-13] MEDS: METOPROLOL TARTRATE 25 MG TAB PO SCH ×2 (09:21→21:06)
[2016-09-13] MEDS: BUDESONIDE-FORMOTEROL 80/4.5 MCG INHALER INH SCH ×2 (09:24→21:00)
--- NOTE | 2016-09-13 10:24 | HHI.PR ---
Subjective Remarks Follow up dehydration, renal failure, diarrhea. Patient still having frequent loose stools, but states that they are becoming more formed. No abdominal pain, nausea, vomiting. Denies chest pain, dyspnea. Objective Vitals Vital Signs Date Time Temp Pulse Resp B/P Pulse Ox O2 Delivery O2 Flow Rate FiO2 09/13/16 09:07 94 21 09/13/16 06:00 88 16 158/75 09/13/16 05:00 84 16 158/62 09/13/16 04:00 98.5 92 17 148/74 09/13/16 03:00 86 17 153/71 09/13/16 02:00 88 18 158/72 09/13/16 01:00 84 18 152/76 09/13/16 00:00 98.3 84 18 152/71 09/12/16 23:00 88 26 161/81 09/12/16 22:00 88 18 159/77 09/12/16 21:00 120 26 134/86 09/12/16 20:00 133 09/12/16 20:00 98.5 118 20 148/72 09/12/16 19:00 Room Air 09/12/16 19:00 118 23 155/87 09/12/16 18:00 120 09/12/16 18:00 120 10 166/76 09/12/16 17:00 116 23 154/84 09/12/16 16:00 98.5 110 18 150/78 96 09/12/16 16:00 110 09/12/16 15:00 112 17 138/70 09/12/16 14:00 118 09/12/16 14:00 118 16 134/69 09/12/16 13:00 108 17 139/72 94 09/12/16 12:00 106 09/12/16 12:00 98.1 106 24 140/76 09/12/16 11:00 106 19 117/62 92 I/O 09/12/16 09/12/16 09/12/16 09/13/16 09/13/16 09/13/16 07:00 15:00 23:00 07:00 15:00 23:00 Intake Total 1189 ml 2481 ml 1466 ml Output Total 1100 ml 2475 ml 750 ml Balance 89 ml 6 ml 716 ml Intake Oral 300 ml 780 ml 600 ml IV Total 889 ml 1701 ml 866 ml Output Urine Total 1100 ml 1900 ml 450 ml Stool Total 575 ml 300 ml Result Diagram: 09/12/16 1345 09/13/16 0601 Imaging Last Impressions Abdomen/Pelvis CT 09/10/16 1834 Signed Impressions: Service Date/Time: August 18:40 - CONCLUSION: Fatty liver and colonic diverticuli. Efren Londono MD Chest X-Ray 09/10/16 1746 Signed Impressions: Service Date/Time: August 17:58 - CONCLUSION: No acute cardiopulmonary disease. Efren Londono MD Objective Remarks General: Elderly male in no acute distress. Heart: Regular rate and rhythm. No murmur. Lungs: Clear to auscultation bilaterally. No wheezes, rales, or rhonchi. Breathing is nonlabored. Abdomen: Soft, nontender, nondistended. Extremities: No lower extremity edema. Psych: Alert and oriented. Procedures None Urinary Catheter: Yes Assessment to: Remove Date of Insertion: Sep 10, 2016 Vascular Central Line Catheter: No A/P Problem List: (1) Severe sepsis ICD Code: A41.9 Status: Resolved (2) Diarrhea ICD Code: R19.7 Status: Acute (3) Rhabdomyolysis ICD Code: M62.82 Status: Acute (4) Atrial fibrillation with RVR ICD Code: I48.91 Status: Resolved (5) Acute renal failure ICD Code: N17.9 Status: Acute (6) Hypertension ICD Code: I10 Status: Chronic (7) Hypokalemia ICD Code: E87.6 Status: Resolved Assessment and Plan 1. Severe sepsis: Resolved. Source is likely gastroenteritis. WBCs are now within normal limits. Heart rate is improved. Blood cultures are negative so far. Continue antibiotics. 2. Diarrhea: Likely gastroenteritis. C. difficile negative. Continue current antibiotics. Continue IV fluids. Stool studies are pending. 3. Acute renal failure: Improving. Appreciate nephrology recommendations. Continue IV fluids. Monitor labs. 4. Rhabdomyolysis: Continue IV fluids. 5. Hypokalemia: Improved. 6. Atrial fibrillation with RVR: Heart rate now controlled. Appreciate cardiology recommendations. Continue metoprolol. Continue Eliquis. 7. Hypertension: Blood pressure has been elevated. Continue metoprolol. Restart amlodipine. Enalapril on hold secondary to renal failure. 8. Asthma: Continue current medications. Albuterol nebs as needed. 9. GI prophylaxis: Pepcid. 10. DVT prophylaxis: SCDs, Eliquis. Problem Qualifiers (1) Diarrhea: Qualified Code: R19.7 - Diarrhea, unspecified type Carl Williamson MD Sep 13, 2016 10:24
[2016-09-13] MEDS: ACETAMINOPHEN/HYDROcodone 325 MG/5 MG TAB PO PRN (14:41)
[2016-09-13] MEDS: cefTRIAXone INJ 1,000 MG in SODIUM CHLORIDE 0.9% INJ 100 ML IV SCH (22:17)
[2016-09-14] VITALS (9 sets, daily range): BP systolic 115–174; BP diastolic 69–88; PULSE 81–106; RESP 18–22; TEMP 96.7–98.6; O2SAT 94–96
[2016-09-14] MEDS: metroNIDAZOLE 500 MG INJ 100 ML IV SCH (04:09)
[2016-09-14] MEDS: CHLORHEXIDINE GLUCONATE 2 % 1 PACK (2 CLOTHS) TOP SCH (04:10)
--- NOTE | 2016-09-14 05:37 | HHI.PR ---
Addendum to Inpatient Note Addendum Reason: Additional Documentation Additional Information The patient had an asymptomatic 5 beat run of V. tach per nursing. Vital signs : Temperature is 98.4, pulse 87, respiratory rate 22, blood pressure 157/81, pulse oximetry 94% on room air - will check STAT CBC, BMP, magnesium, and troponin I. Given patient's history of diarrhea and electrolyte abnormalities, I suspect electrolyte derangement may be a contributing factor. We'll follow results and treat as indicated. Jocelyn Ferreira Sep 14, 2016 05:37
[2016-09-14 06:09] LABS: CHLORIDE 109 MEQ/L (98-107); POTASSIUM 3.9 MEQ/L (3.5-5.1); SODIUM (NA) 141 MEQ/L (136-145)
[2016-09-14 06:12] LABS: ANION GAP 8 MEQ/L (5-15); BICARBONATE 23.6 MEQ/L (21.0-32.0); BLOOD UREA NITROGEN 17 MG/DL (7-18)
[2016-09-14 06:14] LABS: AUTOMATED NEUTROPHIL # 5.1 TH/MM3 (1.8-7.7); BASOPHIL % 0.2 % (0.0-2.0); EOSINOPHIL # 0.3 TH/MM3 (0-0.4); EOSINOPHIL % 4.1 % (0.0-4.0); HEMATOCRIT 34.2 % (39.0-51.0); HEMO FLAGS DIFF FINAL; LYMPH % 14.5 % (9.0-44.0); MEAN CELL VOLUME 84.6 FL (80.0-100.0); MEAN CORPUSCULAR HEMOGLOBIN 28.3 PG (27.0-34.0); MEAN CORPUSCULAR HGB CONC 33.4 % (32.0-36.0); MONO % 8.8 % (0.0-8.0); NEUT % 72.4 % (16.0-70.0); PLATELET COUNT 135 TH/MM3 (150-450); RED BLOOD COUNT 4.04 MIL/MM3 (4.50-5.90); RED CELL DISTRIBUTION WIDTH 13.6 % (11.6-17.2)
[2016-09-14 06:15] LABS: GLOMERULAR FILTRATION RATE 88 ML/MIN (>89)
[2016-09-14] MEDS: ZAFIRLUKAST 20 MG TAB PO SCH ×2 (06:45→15:00)
--- NOTE | 2016-09-14 07:55 | PD.CARD.PN ---
Subjective Subjective Remarks PT in NSR, no sx. Objective Medications Administered Medications Medications (Trade) Dose Ordered Sig/Moira Route PRN Reason Start Time Stop Time Status Last Admin Dose Admin Sodium Chloride (NS Flush) 2 ml BID .XX 09/10/16 21:00 09/13/16 21:08 Morphine Sulfate (Morphine Inj) 2 mg Q2H PRN IV BREAKTHROUGH PAIN 09/10/16 20:45 09/13/16 22:29 Famotidine (Pepcid Inj) 10 mg Q12HR IV PUSH 09/10/16 21:45 09/13/16 21:05 Heparin Sodium (Porcine) (Heparin Inj) 5,000 units Q12HR SQ 09/10/16 21:30 Hold 09/12/16 08:58 Miscellaneous Information 1 Q361D XX 09/10/16 20:45 09/10/16 20:45 Chlorhexidine Gluconate 3 pack 3 pack Taper DAILY@04 TOP 09/11/16 04:00 09/07/17 03:59 09/14/16 04:10 Ceftriaxone Sodium 1000 mg/ Sodium Chloride 100 ml @ 200 mls/hr Q24H IV 09/10/16 22:00 09/13/16 22:17 Metronidazole (Flagyl 500 Mg Inj) 100 ml @ 100 mls/hr Q8H IV 09/11/16 04:00 09/14/16 04:09 Apixaban (Eliquis) 5 mg BID PO 09/12/16 21:00 09/13/16 21:06 Metoprolol Tartrate (Lopressor) 25 mg Q12HR PO 09/12/16 09:00 09/13/16 21:06 Zafirlukast 20 mg 20 mg BIDAC PO 09/12/16 10:00 09/14/16 06:45 Potassium Chloride/Sodium Chloride (1/2 NS + KCl 20 Meq Inj) 1,000 ml @ 100 mls/hr Q10H IV 09/12/16 13:45 09/13/16 21:07 Budesonide/ Formoterol Fumarate (Symbicort 80-4.5 Mcg Inh) 2 puff BID INH 09/12/16 21:00 09/13/16 21:00 Amlodipine Besylate (Norvasc) 10 mg DAILY PO 09/13/16 11:00 09/13/16 11:41 Acetaminophen/ Hydrocodone Bitart ([place] 5-325 Mg) 1 tab Q12HR PRN PO PAIN SCALE 4 TO 10 09/13/16 13:45 09/13/16 14:41 Vital Signs / I&O Vital Signs Date Time Temp Pulse Resp B/P Pulse Ox O2 Delivery O2 Flow Rate FiO2 09/14/16 05:13 98.4 87 22 157/81 94 09/14/16 04:32 106 09/14/16 00:53 98.4 83 20 115/69 95 09/13/16 21:22 97.7 92 18 152/86 97 09/13/16 20:00 87 09/13/16 19:00 97 Room Air 09/13/16 16:50 165/86 09/13/16 12:51 89 09/13/16 12:51 97.0 89 22 174/85 95 09/13/16 12:00 84 09/13/16 11:00 82 16 140/65 09/13/16 10:00 92 17 149/70 09/13/16 09:07 94 21 09/13/16 09:00 88 20 160/79 09/13/16 08:00 96 Room Air 09/13/16 08:00 98.7 88 17 164/83 09/13/16 08:00 92 I/O 09/13/16 09/13/16 09/13/16 09/14/16 09/14/16 09/14/16 07:00 15:00 23:00 07:00 15:00 23:00 Intake Total 1466 ml 100 ml 95 ml Output Total 750 ml Balance 716 ml 100 ml 95 ml Intake Oral 600 ml 100 ml IV Total 866 ml 95 ml Output Urine Total 450 ml Stool Total 300 ml # Voids 2 3 # Bowel Movements 0 Physical Exam GENERAL: This is a well-nourished, well-developed patient, in no apparent distress. CARDIOVASCULAR: Regular rate and rhythm without murmurs, gallops, or rubs. RESPIRATORY: Clear to auscultation. Breath sounds equal bilaterally. No wheezes , rales, or rhonchi. GASTROINTESTINAL: Abdomen soft, non-tender, nondistended. Normal active bowel sounds MUSCULOSKELETAL: Extremities without clubbing, cyanosis, or edema. NEURO: Alert & Oriented x4 to person, place, time, situation. Moves all ext x4 Laboratory Laboratory Tests Test 09/14/16 05:45 White Blood Count 7.0 TH/MM3 Red Blood Count 4.04 MIL/MM3 Hemoglobin 11.4 GM/DL Hematocrit 34.2 % Mean Corpuscular Volume 84.6 FL Mean Corpuscular Hemoglobin 28.3 PG Mean Corpuscular Hemoglobin 33.4 % Concent Red Cell Distribution Width 13.6 % Platelet Count 135 TH/MM3 Mean Platelet Volume 8.2 FL Neutrophils (%) (Auto) 72.4 % Lymphocytes (%) (Auto) 14.5 % Monocytes (%) (Auto) 8.8 % Eosinophils (%) (Auto) 4.1 % Basophils (%) (Auto) 0.2 % Neutrophils # (Auto) 5.1 TH/MM3 Lymphocytes # (Auto) 1.0 TH/MM3 Monocytes # (Auto) 0.6 TH/MM3 Eosinophils # (Auto) 0.3 TH/MM3 Basophils # (Auto) 0.0 TH/MM3 CBC Comment DIFF FINAL Differential Comment Sodium Level 141 MEQ/L Potassium Level 3.9 MEQ/L Chloride Level 109 MEQ/L Carbon Dioxide Level 23.6 MEQ/L Anion Gap 8 MEQ/L Blood Urea Nitrogen 17 MG/DL Creatinine 0.85 MG/DL Estimat Glomerular Filtration 88 ML/MIN Rate Random Glucose 93 MG/DL Calcium Level 8.0 MG/DL Magnesium Level 2.0 MG/DL Troponin I LESS THAN 0.02 NG/ML Imaging Last Impressions Abdomen/Pelvis CT 09/10/16 1834 Signed Impressions: Service Date/Time: August 18:40 - CONCLUSION: Fatty liver and colonic diverticuli. Efren Londono MD Chest X-Ray 09/10/16 1746 Signed Impressions: Service Date/Time: August 17:58 - CONCLUSION: No acute cardiopulmonary disease. Efren Londono MD Assessment and Plan Problem List: (1) Atrial fibrillation with RVR Assessment and Plan: Currently in NSR, continue eliquis, metoprolol (will increase) (2) Abnormal EKG Assessment and Plan: also w/ short NSVT, nuc stress today. Assessment and Plan If no ischemia on nuc stress can be discharged home from cardiac standpoint ( once cleared medically); will see in the office in 1-2 weeks. Wade Mcintyre MD Sep 14, 2016 07:55
--- NOTE | 2016-09-14 09:06 | HHI.PR ---
Subjective Remarks Follow-up for diarrhea, JOSE MARIA, A. fib. Patient states he had 5-6 episodes of diarrhea overnight; admits to very little abdominal pain. Denies any nausea or vomiting. Denies any chest pain, shortness of breath, or cough. Objective Vitals Vital Signs Date Time Temp Pulse Resp B/P Pulse Ox O2 Delivery O2 Flow Rate FiO2 09/14/16 07:00 98.0 87 20 174/88 96 09/14/16 07:00 Room Air 09/14/16 05:13 98.4 87 22 157/81 94 09/14/16 04:32 106 09/14/16 00:53 98.4 83 20 115/69 95 09/13/16 21:22 97.7 92 18 152/86 97 09/13/16 20:00 87 09/13/16 19:00 97 Room Air 09/13/16 16:50 165/86 09/13/16 12:51 89 09/13/16 12:51 97.0 89 22 174/85 95 09/13/16 12:00 84 09/13/16 11:00 82 16 140/65 09/13/16 10:00 92 17 149/70 09/13/16 09:07 94 21 I/O 09/13/16 09/13/16 09/13/16 09/14/16 09/14/16 09/14/16 07:00 15:00 23:00 07:00 15:00 23:00 Intake Total 1466 ml 100 ml 95 ml Output Total 750 ml Balance 716 ml 100 ml 95 ml Intake Oral 600 ml 100 ml IV Total 866 ml 95 ml Output Urine Total 450 ml Stool Total 300 ml # Voids 2 3 # Bowel Movements 0 Result Diagram: 09/14/16 0545 09/14/16 0545 Objective Remarks GENERAL: Well-nourished, well-developed patient in no apparent distress. SKIN: Warm and dry. HEAD: Atraumatic. Normocephalic. CARDIOVASCULAR: RRR. RESPIRATORY: No accessory muscle use. Clear to auscultation. Breath sounds equal bilaterally. GASTROINTESTINAL: Normoactive bowel sounds. Abdomen soft, non-tender, nondistended. MUSCULOSKELETAL: No lower extremity edema bilaterally. NEUROLOGICAL: Awake and alert. Motor grossly within normal limits. Normal speech. PSYCHIATRIC: Appropriate mood and affect; insight and judgment normal. Procedures None Urinary Catheter: No Date of Insertion: Sep 10, 2016 Vascular Central Line Catheter: No A/P Problem List: (1) Severe sepsis ICD Code: A41.9 Status: Resolved (2) Diarrhea ICD Code: R19.7 Status: Acute (3) Rhabdomyolysis ICD Code: M62.82 Status: Resolved (4) Atrial fibrillation with RVR ICD Code: I48.91 Status: Resolved (5) Acute renal failure ICD Code: N17.9 Status: Resolved (6) Hypertension ICD Code: I10 Status: Chronic (7) Hypokalemia ICD Code: E87.6 Status: Resolved Assessment and Plan 76-year-old male with: Severe sepsis: Resolved. Initial WBC count 21.7. Respiratory rate greater than 20. Heart rate greater than 90 but patient also in A. fib. Lactic acid 2.2. Source of infection suspected gastroenteritis. Hypotensive with BP of 69/52 on presentation. -Blood cultures 2 no growth to date -Continue IVF -Telemetry, vitals -WBC improved at 7.0. Diarrhea: The patient likely has a gastroenteritis. -Discontinue antibiotics as they do not appear to be helping and could be exacerbating diarrhea. Start Lactinex. -No BMs are documented although patient admits to 5-6 episodes of diarrhea. RN informed to monitor stool output. -Continue IV hydration -Final stool studies pending; few WBCs. Acute renal failure: Resolved. BUN/creatinine 82/9.8 on arrival. BUN/Cr now wnl. -Nephrology consultation appreciated, has signed off. -Monitor BMP -Avoid nephrotoxins Rhabdomyolysis: Resolved. CK elevated at 1132, could be due to infection or electrolyte abnormalities. CK now 174. Electrolyte abnormalities: Hypokalemia resolved. Minor elevation in Cl level. -Continue 1/2 NS + 20 mEq KCl at 70 mL/hr IV as patient continues to have diarrhea. -Repeat am BMP A.Fib RVR: EKG with A.Fib RVR. Resolved. -Cardiology consultation appreciated. -Echo with normal EF of 55-60%; mildly thickened annulus of the mitral valve and mildly dilated left atrium. -Continue Eliquis -Telemetry reviewed with 5 beat run of V. tach last night. Troponin <0.02. Cardiology has ordered nuclear stress test which shows apical thinning but no reversibility to suggest ischemia. Cleared by cardiology, f/u outpatient in 1-2 weeks. HTN: BP still elevated this morning. -Continue metoprolol as indicated and amlodipine. -Will wait to resume home enalapril and hctz as patient's metoprolol was just recently increased. Monitor BP today and resume meds as necessary. -IVF may be contributing to HTN as well, but patient continues to have diarrhea , so will continue to hydrate, but at lower rate. Asthma: -Continue home Zafirlukast and Advair. -Albuterol/Duonebs. GI prophylaxis: Pepcid DVT prevention: SCDs, Eliquis. Written by Janet Barba PA-C acting as scribe for Dr. Williamson on 09/14/16 at 0903. This note was transcribed by scribe Janet Barba PA-C. I, Dr. Carl Williamson personally performed the history, physical exam, and medical decision making; and confirmed the accuracy of the information in the transcribed note. Authenticated by Dr. Carl Williamson on 09/14/16 at 13:56. Problem Qualifiers (1) Diarrhea: Qualified Code: R19.7 - Diarrhea, unspecified type Janet Barba Sep 14, 2016 09:06 Carl Williamson MD Sep 14, 2016 13:56
[2016-09-14] MEDS: FAMOTIDINE 20 MG/2 ML VIAL IV PUSH SCH ×2 (09:48→21:39)
[2016-09-14] MEDS: METOPROLOL TARTRATE 50 MG TAB PO SCH ×2 (09:48→21:37)
[2016-09-14] MEDS: APIXABAN 5 MG TABLET PO SCH ×2 (09:48→21:37)
[2016-09-14] MEDS: ACETAMINOPHEN/HYDROcodone 325 MG/5 MG TAB PO PRN ×2 (09:52→21:37)
[2016-09-14] MEDS ORDERED: REGADENOSON INJ 0.4 MG/5 ML SYR IV ONE (10:11)
--- NOTE | 2016-09-14 11:24 | HHI.NPPN ---
Subjective Renal Failure: Acute History of Present Illness 76-year-old male with past medical history of hypertension only presented to the emergency department yesterday evening because of severe diarrhea and generalized weakness lasting for the last 2-3 days. I was called to see the patient because of a very high BUN and creatinine. His BUN on presentation was 82 and the creatinine was 9.8. Additional Remarks Patient is alert,no SOB, no vomiting, still has diarrhea. Review of Systems General Constitutional: Fatigue Gastrointestinal Gastrointestinal: Diarrhea Objective Data Data 09/13/16 09/14/16 19:00 07:00 Intake Total 100 ml 95 ml Balance 100 ml 95 ml Intake Oral 100 ml IV Total 95 ml # Voids 5 # Bowel Movements 0 Vital Signs Date Time Temp Pulse Resp B/P Pulse Ox O2 Delivery O2 Flow Rate FiO2 09/14/16 09:20 94 21 09/14/16 07:00 98.0 87 20 174/88 96 09/14/16 07:00 Room Air 09/14/16 05:13 98.4 87 22 157/81 94 09/14/16 04:32 106 09/14/16 00:53 98.4 83 20 115/69 95 09/13/16 21:22 97.7 92 18 152/86 97 09/13/16 20:00 87 09/13/16 19:00 97 Room Air 09/13/16 16:50 165/86 09/13/16 12:51 89 09/13/16 12:51 97.0 89 22 174/85 95 09/13/16 12:00 84 -: 09/14/16 0545 09/14/16 0545 Physical Exam General Appearance: No Acute Distress, Comfortable Eyes Eye Exam: Pupils Equal Pulmonary Resp Exam: Clear Bilaterally, Breath Sounds Equal, No Distress, Decreased Bases Cardiology CV Exam: Regular, Normal Sinus Rhythm Gastrointestinal/Abdomen GI Exam: Soft, Non-Tender, Bowel Sounds Present Extremeties Extremities Exam: Trace Edema Neurologic Neuro Exam: Alert, Awake, Oriented Psychiatric Psych Exam: Appropriate Responses Assessment/Plan Assessment Summary: JOSE MARIA/Acute Renal Failure Electrolyte Assessment: Hypokalemia, Metabolic Acidosis Problem List: (1) Severe dehydration (2) Diarrhea (3) Electrolyte abnormality (4) Atrial fibrillation with RVR (5) Rhabdomyolysis (6) Acute renal insufficiency Plan BUN and Creatinine now normalized. K is normal and the Acidosis is also better. Urine out put is good. BP is stable. Most likely has JOSE MARIA due to dehydration. I will sign off from Nephrology. Problem Qualifiers (1) Diarrhea: Qualified Code: R19.7 - Diarrhea, unspecified type Sara Armendariz MD Sep 14, 2016 11:24
--- NOTE | 2016-09-14 11:52 | RADHPO ---
EXAM DATE/TIME: 09/14/2016 10:03 [facility] COMPARISON: No previous studies available for comparison. INDICATIONS : Abnormal EKG. Atrial fibrillation. DOSE: 25.4 mCi Tc99m Myoview at stress. 8.5 mCi Tc99m Myoview at rest. 0.4 mg Lexiscan STRESS SYMPTOMS: Dyspnea and lightheaded. EJECTION FRACTION: 60% MEDICAL HISTORY : Hypertension. SURGICAL HISTORY : Right arm. ENCOUNTER: Initial ACUITY: 2 days PAIN SCALE: 0/10 LOCATION: Left chest TECHNIQUE: The patient underwent pharmacologic stress with infusion of prescribed dose. Continuous ECG tracing was monitored during stress. Gated SPECT imaging was performed after stress and conventional SPECT i maging was performed at rest. The examination was performed on a SPECT/CT scanner, both attenuation and non-corrected datasets were reviewed. FINDINGS: DISTRIBUTION: The maximum perfused segment at stress is in the anterolateral wall. PERFUSION STUDY: The pattern of perfusion at stress is within normal limits with some mild apical thinning. GATED STUDY: There is intact wall motion and thickening without hypokinetic or dyskinetic segments. CONCLUSION: 1. Apical thinning with no reversibility to suggest ischemia. 2. Preserved wall motion throughout with an estimated ejection fraction of 60%. RISK CATEGORY: Low (<1% Annual Mortality Rate) Rome Guerrero MD on September 14, 2016 at 11:47 Board Certified Radiologist. This report was verified electronically.
[2016-09-14] MEDS: LACTOBACILLUS ACIDOPHILUS TAB PO SCH ×2 (14:49→18:56)
[2016-09-14] MEDS: BUDESONIDE-FORMOTEROL 80/4.5 MCG INHALER INH SCH ×2 (14:50→22:06)
[2016-09-14] MEDS: SODIUM CHLORIDE 0.9% FLUSH 10 ML FLUSH SCH ×2 (14:58→21:00)
[2016-09-14] MEDS: MORPHINE SULFATE 4 MG/ML INJ IV PRN ×2 (15:00→19:05)
[2016-09-14] MEDS: 1/2 NS + KCL 20 MEQ INJ 1,000 ML IV SCH (18:56)
[2016-09-15] VITALS: BP 158/91; PULSE 92; RESP 18; TEMP 96.7; O2SAT 96
[2016-09-15 04:00] VITALS: BP 158/90; PULSE 83; RESP 16; TEMP 98.6; O2SAT 93
[2016-09-15] MEDS: CHLORHEXIDINE GLUCONATE 2 % 1 PACK (2 CLOTHS) TOP SCH (04:00)
[2016-09-15] MEDS: ZAFIRLUKAST 20 MG TAB PO SCH (06:10)
[2016-09-15] MEDS: 1/2 NS + KCL 20 MEQ INJ 1,000 ML IV SCH (06:11)
[2016-09-15 06:55] LABS: BICARBONATE 24.1 MEQ/L (21.0-32.0)
[2016-09-15 08:00] VITALS: BP 151/86; PULSE 83; RESP 18; TEMP 97.7; O2SAT 96
[2016-09-15] MEDS: FAMOTIDINE 20 MG/2 ML VIAL IV PUSH SCH (09:03)
[2016-09-15] MEDS: APIXABAN 5 MG TABLET PO SCH (09:03)
[2016-09-15] MEDS: LACTOBACILLUS ACIDOPHILUS TAB PO SCH (09:03)
[2016-09-15] MEDS: BUDESONIDE-FORMOTEROL 80/4.5 MCG INHALER INH SCH (09:04)
[2016-09-15] MEDS: METOPROLOL TARTRATE 50 MG TAB PO SCH (09:04)
[2016-09-15] MEDS: SODIUM CHLORIDE 0.9% FLUSH 10 ML FLUSH SCH (09:05)
[2016-09-15] MEDS ORDERED: APIX5TAB PO (10:08)
[2016-09-15] MEDS ORDERED: METO-309 PO (10:08)
--- NOTE | 2016-09-15 10:09 | HHI.DCPOC ---
Discharge Care Plan Diagnosis: (1) Diarrhea (2) Electrolyte abnormality (3) Severe dehydration (4) Severe sepsis (5) Hypokalemia (6) Hypertension (7) Atrial fibrillation with RVR (8) Abnormal EKG (9) Rhabdomyolysis (10) Acute renal failure Goals to Promote Your Health * To prevent worsening of your condition and complications * To maintain your health at the optimal level Directions to Meet Your Goals Take your medications as prescribed Follow your dietary instruction Follow activity as directed Keep your appointments as scheduled Take your immunizations and boosters as scheduled If your symptoms worsen call your PCP, if no PCP go to Urgent Care Center or Emergency Room Smoking is Dangerous to Your Health. Avoid second hand smoke Call the 24-hour hour crisis hotline for domestic abuse at Carl Williamson MD Sep 15, 2016 10:09
--- NOTE | 2016-09-15 10:15 | HHI.DS ---
Discharge Summary Admission Date Sep 10, 2016 at 20:11 Discharge Date: Sep 15, 2016 Admitting Diagnosis sepsis, dehydration, diarrhea, renal insufficiency, abnormal EKG (1) Severe sepsis ICD Code: A41.9 (2) Diarrhea ICD Code: R19.7 (3) Rhabdomyolysis ICD Code: M62.82 (4) Atrial fibrillation with RVR ICD Code: I48.91 (5) Acute renal failure ICD Code: N17.9 (6) Hypertension ICD Code: I10 (7) Hypokalemia ICD Code: E87.6 Procedures None Brief History - From Admission The patient is a 76-year-old male with past medical history of hypertension who presented to [facility] with a history of diarrhea, generalized weakness, and decreased oral intake for the previous 2 days. He denied emesis, abdominal pain, fever, chills, chest pain, dyspnea, orthopnea, PND, edema. Upon arrival to the ER he was hypotensive with a blood pressure of 69/52. He responded to fluid resuscitation. He was given 2 L of crystalloids in the ED and his blood pressure improved to 130/62 with a pulse of 102. CT scan of the abdomen and pelvis showed fatty liver and colonic diverticuli. Chest x-ray showed no acute cardiopulmonary disease. CBC/BMP: 09/14/16 0545 09/15/16 0525 Significant Findings Laboratory Tests Test 09/12/16 09/12/16 09/13/16 09/14/16 10:11 13:45 06:01 05:45 Red Blood Count 4.22 MIL/MM3 4.19 MIL/MM3 4.04 MIL/MM3 (4.50-5.90) (4.50-5.90) (4.50-5.90) Hemoglobin 11.5 GM/DL 11.4 GM/DL 11.4 GM/DL (13.0-17.0) (13.0-17.0) (13.0-17.0) Hematocrit 34.9 % 34.7 % 34.2 % (39.0-51.0) (39.0-51.0) (39.0-51.0) Platelet Count 142 TH/MM3 139 TH/MM3 135 TH/MM3 (150-450) (150-450) (150-450) Neutrophils (%) (Auto) 78.1 % 72.4 % (16.0-70.0) (16.0-70.0) Monocytes (%) (Auto) 8.2 % (0.0-8.0) 8.8 % (0.0-8.0) Lymphocytes # (Auto) 0.7 TH/MM3 (1.0-4.8) Sodium Level 146 MEQ/L (136-145) Potassium Level 3.3 MEQ/L (3.5-5.1) Chloride Level 113 MEQ/L 110 MEQ/L 109 MEQ/L (98-107) (98-107) (98-107) Blood Urea Nitrogen 31 MG/DL (7-18) 21 MG/DL (7-18) Estimat Glomerular Filtration 54 ML/MIN (>89) 73 ML/MIN (>89) 88 ML/MIN (>89) Rate Random Glucose 134 MG/DL (74-106) Calcium Level 7.8 MG/DL 7.6 MG/DL 8.0 MG/DL (8.5-10.1) (8.5-10.1) (8.5-10.1) Aspartate Amino Transf 43 U/L (15-37) (AST/SGOT) Total Protein 5.3 GM/DL (6.4-8.2) Albumin 2.4 GM/DL (3.4-5.0) Eosinophils (%) (Auto) 4.1 % (0.0-4.0) Troponin I LESS THAN 0.02 NG/ML (0.02-0.05) Test 09/15/16 05:25 Chloride Level 109 MEQ/L (98-107) Estimat Glomerular Filtration 79 ML/MIN (>89) Rate Calcium Level 7.7 MG/DL (8.5-10.1) Imaging Last Impressions Myocardial Perfusion Scan Nuc Med 09/14/16 0000 Signed Impressions: Service Date/Time: Wednesday, September 14, 2016 10:03 - CONCLUSION: 1. Apical thinning with no reversibility to suggest ischemia. 2. Preserved wall motion throughout with an estimated ejection fraction of 60%%. RISK CATEGORY: Low (<1%% Annual Mortality Rate) Rome Guerrero MD Abdomen/Pelvis CT 09/10/16 1834 Signed Impressions: Service Date/Time: August 18:40 - CONCLUSION: Fatty liver and colonic diverticuli. Efren Londono MD Chest X-Ray 09/10/16 1746 Signed Impressions: Service Date/Time: August 17:58 - CONCLUSION: No acute cardiopulmonary disease. Efren Londono MD PE at Discharge GENERAL: Well-nourished, well-developed patient in no apparent distress. SKIN: Warm and dry. HEAD: Atraumatic. Normocephalic. CARDIOVASCULAR: RRR. RESPIRATORY: No accessory muscle use. Clear to auscultation. Breath sounds equal bilaterally. GASTROINTESTINAL: Normoactive bowel sounds. Abdomen soft, non-tender, nondistended. MUSCULOSKELETAL: No lower extremity edema bilaterally. NEUROLOGICAL: Awake and alert. Motor grossly within normal limits. Normal speech. PSYCHIATRIC: Appropriate mood and affect; insight and judgment normal. Pt update on day of discharge The patient states that he feels much better today. He would like to go home. Denies chest pain or dyspnea. Diarrhea has resolved. Hospital Course The patient was admitted to the critical care service for management of hypotension, severe dehydration, diarrhea. He was started on antibiotics. Nephrology was consulted for acute renal failure. BUN and creatinine improved throughout the hospitalization. The patient developed atrial fibrillation with RVR. His medications, including beta valerie, were adjusted. He was started on Eliquis for anticoagulation. Nuclear stress test showed no reversible defects to suggest ischemia. The patient's diarrhea resolved. He was felt to be stable for discharge home. Pt Condition on Discharge: Stable Discharge Disposition: Discharge Home Discharge Time: > 30 minutes Discharge Instructions DIET: Follow Instructions for: Heart Healthy Diet Activities you can perform: Regular-No Restrictions Follow up Referrals: Cardiology - 2 Weeks with Justin Vogel DO PCP Follow-up - 1 Week New Medications: Apixaban (Eliquis) 5 Mg Tab 5 MG PO BID Blood Clot Prevention #60 Ref 0 TAB Metoprolol Tartrate (Lopressor) 50 Mg Tab 50 MG PO Q12HR Blood Pressure Management #60 Ref 0 TAB Continued Medications: Amlodipine (Amlodipine) 10 Mg Tab 10 MG PO DAILY Blood Pressure Management #30 Ref 0 TAB Enalapril (Enalapril) 20 Mg Tab 20 MG PO HS #30 Ref 0 TAB Fluticasone-Salmeterol Inh (Advair Diskus Inh) 100-50 Mcg/Blist Aer 1 PUFF INH BID Rinse mouth after use. Asthma Management #1 Ref 0 INHALER Hydrocodone-Acetaminophen (Hydrocodone-Acetaminophen) 5-325 mg Tab 1 TAB PO Q12HR PRN PAIN Ref 0 TAB Zafirlukast (Zafirlukast) 20 Mg Tab 20 MG PO BIDAC Asthma Management #60 Ref 0 TAB Discontinued Medications: Hydrochlorothiazide (Hydrochlorothiazide) 25 Mg Tab 25 MG PO DAILY #30 Ref 0 TAB Metoprolol Tartrate (Metoprolol Tartrate) 100 Mg Tab 100 MG PO DAILY #30 Ref 0 TAB Carl Williamson MD Sep 15, 2016 10:15
== END 2016-09-15 11:35 | disposition home or self-care (01) | DRG 872 ==
LOC: PHED 17:28 → PHEDA 20:11 → PHICU 09-11 03:15 → PH3B 09-13 12:37
PROVIDERS: ADMIT Family Medicine; ATTEND Family Medicine
PROC: 05HY33Z Insertion of Infusion Device into Upper Vein, Percutaneous Approach (ICD-10-PCS; principal; 2016-09-11)
PROC: 0T9B70Z Drainage of Bladder with Drainage Device, Via Natural or Artificial Opening (ICD-10-PCS; 2016-09-11)
DX: A41.9 Sepsis, unspecified organism (principal); N17.9 Acute kidney failure, unspecified; I47.2 Ventricular tachycardia; E87.2 Acidosis; I95.9 Hypotension, unspecified; M62.82 Rhabdomyolysis; K76.0 Fatty (change of) liver, not elsewhere classified; I48.91 Unspecified atrial fibrillation; E87.1 Hypo-osmolality and hyponatremia; E87.8 Other disorders of electrolyte and fluid balance, not elsewhere classified; K52.9 Noninfective gastroenteritis and colitis, unspecified; N28.1 Cyst of kidney, acquired; E86.0 Dehydration; I12.9 Hypertensive chronic kidney disease with stage 1 through stage 4 chronic kidney disease, or unspecified chronic kidney disease; Z87.891 Personal history of nicotine dependence; N18.9 Chronic kidney disease, unspecified; K57.30 Diverticulosis of large intestine without perforation or abscess without bleeding; E87.6 Hypokalemia; J45.909 Unspecified asthma, uncomplicated; R65.20 Severe sepsis without septic shock
CPT/HCPCS: 71010; 74176; 78452; 80048; 80053; 81001; 82140; 82550; 82552; 83605; 83735; 84100; 84132; 84155; 84484; 85025; 85027; 85610; 85730; 87040; 87205; 87328; 87329; 87493; 87640; 87641; 93005; 93017; 93306; 94664; 96360; 96361; 96365; 96375; A9502; J0610; J0696; J1644; J2270; J2405; J2785; J3480; J7030; J7613